=== PATIENT | male | born 1970 | race African-American/Black ===

== ENCOUNTER 2020-10-13 13:00 | Emergency (ER) | payer MEDICAID, MEDICARE ==
--- NOTE | 2020-10-13 15:35 | ER Document Report ---
ED Medical Screen (RME) - General Chief Complaint: Pain With Urination Stated Complaint: burning urination Time Seen by Provider: 10/13/20 15:18 Primary Care Provider: DARVIN THRASHER [Primary Care Provider] - Follow up as needed - HPI Notes: Patient is a 49-year-old male who presents for STD testing. Patient states he was called this morning informed that a past sexual partner tested positive for syphilis. He reports having sexual intercourse with a partner about 2 months ago. He reports clear penile discharge but denies dysuria, hematuria, fever, vomiting, and abdominal pain. Physical Exam - Vital signs Vitals: Temp Pulse Resp BP Pulse Ox 98.8 F 91 16 132/85 H 99 10/13/20 13:49 10/13/20 13:49 10/13/20 13:49 10/13/20 13:49 10/13/20 13:49 - Abdominal Distension: No distension Tenderness: Nontender Notes: Limited exam due to patient seated position in triage. Male genitalia exam deferred until patient gets back to her room. Course - Re-evaluation Re-evalutation: I have greeted and performed a rapid initial assessment of this patient. A comprehensive ED assessment and evaluation of the patient, analysis of test results and completion of medical decision making process will be conducted by an additional ED providers. - Vital Signs Vital signs: Temp Pulse Resp BP Pulse Ox 98.8 F 91 16 132/85 H 99 10/13/20 13:49 10/13/20 13:49 10/13/20 13:49 10/13/20 13:49 10/13/20 13:49 Doctor's Discharge - Discharge Referrals: DARVIN THRASHER [Primary Care Provider] - Follow up as needed
[2020-10-13 16:11] LABS: APPEARANCE,URINE CLEAR; BILIRUBIN,URINE NEGATIVE (NEGATIVE); COLOR,URINE STRAW; GLUCOSE, URINE >=500 mg/dL (NEGATIVE); KETONES,URINE NEGATIVE (NEGATIVE); LEUKOCYTE ESTERASE,URINE NEGATIVE (NEGATIVE); NITRITE,URINE NEGATIVE (NEGATIVE); PROTEIN,URINE NEGATIVE (NEGATIVE); UROBILINOGEN,URINE NEGATIVE mg/dL (<2.0)
[2020-10-13 20:13] LABS: CHLAM PCR NOT DETECTED (NOT DETECT)
[2020-10-13] MEDS ORDERED: FLUCONAZOLE 100 MG TABLET PO ONE (22:06)
[2020-10-13] MEDS ORDERED: PENICILLIN G BENZATHINE 1.2 MILLION UNIT/2 ML DISP.SYRIN IM ONE (22:12)
--- NOTE | 2020-10-13 22:19 | ER Document Report ---
ED General - General Chief Complaint: STD Exposure Stated Complaint: burning urination Time Seen by Provider: 10/13/20 15:18 Primary Care Provider: ZENA NORWOOD MD [JESENIA VARELA] - Follow up as needed NEREIDA HOLT MD [JESENIA VARELA] - Follow up as needed LOCALDARVIN LOMELI [NO LOCAL MD] - Follow up as needed SELENE BRIAN MD [ACTIVE STAFF] - Follow up as needed Notes: 49-year-old male with type 2 diabetes presents with concern for possible syphilis exposure as well as recurrence of penile/foreskin discharge and burning sensation. Patient says that he has had balanitis few times in the past attributed to his diabetes that has resolved with antifungal medicine. Current symptoms feel same as his prior fungal balanitis. Last treated for this approximately 6 months ago. Patient had contact with prior sexual partner approximately 2 months ago and then was told in the last few days that she had tested positive for syphilis. Patient other than irritated foreskin and discharge has felt well. Patient denies any rashes, ulcers, other skin lesions, fever, headache, confusion, nausea vomiting, abdominal pain, urinary frequency, urinary urgency, flank pain Past Medical History - General Information source: Patient - Social History Smoking Status: Unknown if Ever Smoked Frequency of alcohol use: Occasional Family History: Reviewed & Not Pertinent Review of Systems - Review of Systems Notes: REVIEW OF SYSTEMS: CONSTITUTIONAL : Denies fever, chills, or sweats. EENT: Denies recent cold/sinus symptoms, denies throat pain CARDIOVASCULAR: Denies chest pain, ANNELIESE RESPIRATORY: Denies cough, denies shortness of breath. GASTROINTESTINAL: Denies abdominal pain, nausea/vomiting. GENITOURINARY: Denies difficulty urinating, +painful urination. MUSCULOSKELETAL: Denies neck pain, back pain. SKIN: Denies rash or skin lesions. HEMATOLOGIC : Denies easy bruising or bleeding. LYMPHATIC: Denies swollen, enlarged glands. NEUROLOGICAL: Denies headache, denies change in gait. PSYCHIATRIC: Denies anxiety or stress or depression. Physical Exam - Vital signs Vitals: Temp Pulse Resp BP Pulse Ox 98.8 F 91 16 132/85 H 99 10/13/20 13:49 10/13/20 13:49 10/13/20 13:49 10/13/20 13:49 10/13/20 13:49 - Notes Notes: PHYSICAL EXAMINATION: GENERAL: Well-appearing, well-nourished, talkative pleasant middle-aged man without any visible signs of discomfort and in no acute distress. HEAD: Atraumatic, normocephalic. EYES: Pupils equal round and appropriate constriction, sclera anicteric, conjunctiva are normal. ENT: nares patent, moist mucous membranes. NECK: Normal range of motion, supple without lymphadenopathy LUNGS: Breath sounds clear to auscultation bilaterally and equal. No wheezes rales or rhonchi. HEART: Regular rate and rhythm without murmurs ABDOMEN: Soft, nontender, no guarding, no masses, no CVAT : Noncircumcised penis, mild testes descended nontender normal inspection, patient able to easily retract foreskin which reveals a clear/white translucent discharge with diffuse friability and mild erythema of the foreskin and penile surface without any discrete ulcers, no discharge from urethra EXTREMITIES: Normal range of motion, no pitting or edema. No cyanosis. NEUROLOGICAL: Awake, alert, conversing appropriately, moves all extremities spontaneously. PSYCH: Normal mood, normal affect. SKIN: Warm, Dry, normal turgor, no rashes or lesions noted. Course - Re-evaluation Re-evalutation: 10/13/20 22:19 Presentation consistent with recurrent fungal balanitis, will treat with fluconazole. Given patient's diabetes history will obtain fingerstick as marked hyperglycemia may be contributing to current presentation, obtain BMP for rule out DKA if fingerstick is significantly elevated. Given that patient had syphilis exposure will treat empirically for syphilis with benzathine penicillin given that the mucosal friability from the fungal balanitis may obscure a primary ulcer. No signs of secondary or tertiary syphilis, no signs of gonorrhea or chlamydia and in-house test negative. 10/14/20 02:47 Disposition was delayed due to this patient's initial blood never arriving to the lab and needing to be redrawn. Patient with hyperglycemia but no signs of DKA on labs. Patient endorses having had extremely poor diet recently with lots of junk food and sweets. Still has doses of his insulin and does not need refill at this time. Gave diabetes education and return precautions. Will give dose of lispro prior to DC. Patient ready for discharge with close PCP follow- up and return precautions. - Vital Signs Vital signs: Temp Pulse Resp BP Pulse Ox 97.8 F 63 16 116/67 99 10/14/20 00:39 10/14/20 00:39 10/13/20 17:28 10/14/20 00:39 10/14/20 00:39 - Laboratory Results Result Diagrams: 10/14/20 01:00 10/14/20 01:00 Laboratory Results Interpreted: 10/13/20 10/14/20 10/14/20 15:37 01:00 01:00 RBC 5.69 H Sodium 135.2 L Glucose 411 H* Alkaline Phosphatase 201 H Urine Glucose (UA) >=500 H Critical Laboratory Results Reviewed: No Critical Results - Radiology Results Critical Radiology Results Reviewed: No Critical Results Discharge - Discharge Clinical Impression: Balanitis, Hyperglycemia Disposition: HOME, SELF-CARE Additional Instructions: Balanitis Balanitis is inflammation of the foreskin and glans of the penis. The glans may be tender, red, and covered with discharge. It's caused by growth of bacteria or yeast. The problem is common in diabetic men. Retract the foreskin and wash the area with mild soap (such as Phisoderm) twice daily. Allow to dry a few minutes. It usually takes about a week to heal. If there are frequent or severe episodes, circumcision will prevent further problems. Return if the pain or inflammation are worsening, if you have fever or chills, or if you're unable to urinate. Return to the emergency department if you have inability to replace your foreskin after retracting, worsening pain, fever, vomiting, shortness of breath, dizziness, fainting, or any other worsening or alarming symptoms. Follow-up with your primary doctor within 3 days. To follow-up with a urologist to consider possible circumcision for recurrent balanitis. Referrals: PRICE,NO [NO LOCAL MD] - Follow up as needed SELENE BRIAN MD [ACTIVE STAFF] - Follow up as needed ZENA NORWOOD MD [TRANSPORTATION MANAGER] - Follow up as needed NEREIDA HOLT MD [TRANSPORTATION MANAGER] - Follow up as needed
[2020-10-14 01:14] LABS: ABSOLUTE BASOPHILS # (AUTO) 0.1 10^3/uL (0.0-0.2); ABSOLUTE EOSINOPHILS # (AUTO) 0.1 10^3/uL (0.0-0.6); ABSOLUTE LYMPHOCYTES (AUTO) 2.8 10^3/uL (0.5-4.7); ABSOLUTE MONOCYTES (AUTO) 0.5 10^3/uL (0.1-1.4); ABSOLUTE NEUT (AUTO) 3.5 10^3/uL (1.7-8.2); EOSINOPHILS % (AUTO) 1.8 % (0-6); HEMATOCRIT 46.9 % (37.9-51.0); HEMOGLOBIN 15.7 g/dL (13.5-17.0); LYMPHOCYTES % (AUTO) 40.1 % (13-45); MEAN CORPUSCULAR HEMOGLOBIN 27.5 pg (27.0-33.4); MEAN CORPUSCULAR HGB CONC 33.4 g/dL (32.0-36.0); MEAN CORPUSCULAR VOLUME 82 fl (80-97); MONOCYTES % (AUTO) 7.3 % (3-13); PLATELET COUNT 168 10^3/uL (150-450); RED BLOOD COUNT 5.69 10^6/uL (4.35-5.55); RED CELL DISTRIBUTION WIDTH 13.4 % (11.5-14.0); SEGMENTED NEUTROPHILS % (AUTO) 49.8 % (42-78); TOTAL CELLS COUNTED % (AUTO) 100 %
[2020-10-14 01:47] LABS: ALBUMIN 4.2 g/dL (3.5-5.0); ALKALINE PHOSPHATASE 201 U/L (38-126); ANION GAP 8 (5-19); ASPARTATE AMINO TRANSFERASE 19 U/L (17-59); BILIRUBIN,DIRECT 0.2 mg/dL (0.0-0.4); BILIRUBIN,TOTAL 0.9 mg/dL (0.2-1.3); BLOOD UREA NITROGEN 10 mg/dL (7-20); CALCIUM 9.8 mg/dL (8.4-10.2); CARBON DIOXIDE 26 mmol/L (22-30); CHLORIDE 101 mmol/L (98-107); POTASSIUM 4.5 mmol/L (3.6-5.0); TOTAL PROTEIN 7.3 g/dL (6.3-8.2)
[2020-10-14 01:59] LABS: GLUCOSE 411 mg/dL (75-110)
[2020-10-14] MEDS ORDERED: INSULIN LISPRO 100 UNIT/ML 3 ML VIAL SUBCUT ONE (02:47)
[2020-10-14 03:31] VITALS: BP 132/89
== END 2020-10-14 03:38 | disposition home or self-care (01) ==
LOC: ER 13:00
DX: N48.1 Balanitis (principal); E11.65 Type 2 diabetes mellitus with hyperglycemia; Z79.4 Long term (current) use of insulin; Z20.2 Contact with and (suspected) exposure to infections with a predominantly sexual mode of transmission
CPT/HCPCS: 99284; 96372; 36415; 82962; 85025; 86592; 80053; 81001; 86701; 87491; 87591; A9270 ×2; J0561; J1815